=== PATIENT | male | born 1945 | race Caucasian/White ===

== ENCOUNTER 2016-03-25 05:56 | Emergency (ER) | payer MEDICARE, OTHER ==
[~2016-03-25] VITALS: Ht 185.4 cm; Wt 115.9 kg
[~2016-03-25 05:56] MED LIST: ASPI81TA40 PO; FLO1; OMPR20CCR PO; PRE20 PO; [UNRECOGNIZED DRUG - CODE] PO
[2016-03-25 06:00] VITALS: BP 146/100; PULSE 85; RESP 18; O2SAT 94
--- NOTE | 2016-03-25 06:05 | ED.REPORT ---
HPI-Hand Prob/Inj Date of Service Mar 25, 2016 ED Provider: Singh Elizalde MD The patient is a 70 year old male who presents to the ED due to a laceration on the right hand sustained just [employer]. Pt went out to product picker the garbage this morning, it was dark and a can cut his hand. The laceration is 1.5 cm on his right index finger. It has stopped bleeding upon arrival but he has dried blood all over his hand. Pt is calm and oriented upon arrival. He is allergic to Penicillin and SULFA and is up-to-date on his tetanus shot. Nursing Notes Stated Complaint: R HAND INJURY Chief Complaint: Laceration Nursing Notes Reviewed: Yes Allergies: Coded Allergies: Penicillins (Verified Allergy, Mild, 03/25/16) Uncoded Allergies: SULFA (Allergy, Mild, 12/04/08) Scheduled Fludrocortisone-Expunged Drug, Do Not Renew! (Florinef-Expunged Drug, Do Not Renew!) 0.1 Mg Tablet BID Omeprazole-Expunged Drug, Do Not Renew! (Omeprazole-Expunged Drug, Do Not Renew! ) 20 Mg Capsule.dr 20 MG PO BID PredniSONE-Expunged Drug, Do Not Renew! (PredniSONE-Expunged Drug, Do Not Renew! ) 20 Mg Tab 5 MG PO DAILY TAKE WITH FOOD Miscellaneous Medications Aspirin-Expunged Drug, Do Not Renew! (Aspirin-Expunged Drug, Do Not Renew!) 81 Mg Tab.chew 81 MG PO THIORIDAZINE-Expunged Drug, Do Not Renew! (Mellaril-Expunged Drug, Do Not Renew! ) 50 Mg Tab 50 MG PO General Time Seen by Provider: 06:10 Chief Complaint Hand injury right Hx Obtained From: Patient Arrived By: Walk-in Onset Occurred: Just prior to arrival Symptom Duration: Since onset Caused by: Accidental Location: Right Hand: : Finger... Severity: Current: Mild Recent Healthcare: No recent doctor visit, No recent hospitalization Similar Sx Previous: No Past Medical History Past Medical History [place]'s disease lower back arthritis Reports: GERD Past Surgical History hernia repair as a child Social History Alcohol Use: "Social" Other Social History: Lives alone, Local resident Ambulatory Status Independent Review of Systems Musculoskeletal: Reports: Extremity pain (right hand laceration) Complete sys rev & neg: except as marked. Physical Exam Initial Vital Signs Vital Signs (First) Date Time Temp Pulse Resp B/P Pulse Ox O2 Delivery O2 Flow Rate FiO2 03/25/16 06:00 36.3 85 18 146/100 94 Room Air Initial VS: Reviewed General/Constitutional: Well-developed, Well-nourished Head / Eyes: Atraumatic, Normocephalic, PERRL ENT: Mucous membranes moist, Conjunctiva normal, No scleral icterus Neck: Supple, Non-tender, Full range of motion Respiratory: Breath sounds normal, Clear to auscultation, No respiratory distress Cardiovascular: Regular rate & rhythm, Heart sounds normal, Intact distal pulses Abdomen / GI: Soft, Non-tender, No guarding, No rebound, No distention Skin: Warm, Dry, No cyanosis Neurologic: Alert, Oriented, Nonfocal Psychiatric: Mood/affect normal, Behavior normal, Normal thought content Trauma / Burn / Environmental: Positive: Laceration (1.5 cm laceration on right index finer) tendon function normal laceration in palmar fold of PIP joint of index finger of right hand no foreign body identified Procedures Laceration Management Time: 06:32 Procedure Performed by: ED physician Consent / Setup / Site Prep: Informed consent provided, Time-out performed, Hand hygiene observed, Stand sterile technique Location of Wound: right hand Wound Length: 1 cm (1.5 cm) Local Anesthesia: Lidocaine 1% Digit Involved: Index finger right Wound Preparation: Nereida Foreign Body Explore / Removal: Explored for foreign body # Sutures - Skin: 3 Suture Technique: Simple Post-Procedure / Complications: Antibiotic oint applied, Dressing applied, No complications, Condition improved, Tolerated procedure well, Patient stable Re-Eval/Medical Decision Re-Evaluation/Progress : Time of Eval: 06:37 Patient Status: Condition improved, Mild relief Re-Evaluation/Progress Note: Pt rechecked. Laceration management performed. Pt tolerated exam well. F/U and RTER warnings given. All questions addressed. Counseled Regarding: Diagnosis, Lab results, Need for follow-up, When/why to return to ED Discharge & Departure Primary Impression: Laceration of finger of right hand Encounter type: initial encounter Qualified Code: S61.219A - Laceration without foreign body of unspecified finger without damage to nail, initial encounter Disposition: Home Discharge Condition All VS Reviewed: Yes Condition: Stable Patient Instructions: Finger Laceration (ED) Additional Instructions: Thank you for coming to the Emergency Department today. Keep the cut clean and dry. Take Ibuprofen and Tylenol for pain as needed. The wound will ooze a little bit, but this is normal. Return to the Emergency Department if you experience any new or worsening symptoms, any signs of redness or infection in the area. We hope you feel better soon! Sutures need to be removed in 7 days. Referrals: Codey Wright MD (PCP) Scribe Attestation Portion of this note were transcribed by Giovana Bravo. I, Dr. Elizalde, personally performed the history, physical exam, and medical decision-making: I reviewed and confirmed the accuracy for the information in the transcribed note. Signed by: kong Tipton, 03/25/16 0800 copies to: Codey Wright MD, Kirk H MD Mar 25, 2016 06:05 GIOVANA BRAVO Mar 25, 2016 06:14
== END 2016-03-25 07:12 | disposition home or self-care (01) ==
LOC: SED 05:56
DX: S61.210A Laceration without foreign body of right index finger without damage to nail, initial encounter (principal); W26.8XXA Contact with other sharp object(s), not elsewhere classified, initial encounter; Y93.89 Activity, other specified; Y99.8 Other external cause status; Y92.019 Unspecified place in single-family (private) house as the place of occurrence of the external cause; K21.9 Gastro-esophageal reflux disease without esophagitis; Z86.39 Personal history of other endocrine, nutritional and metabolic disease; Z79.82 Long term (current) use of aspirin; Z88.0 Allergy status to penicillin; Z88.2 Allergy status to sulfonamides

== ENCOUNTER 2016-04-01 05:30 | Emergency (ER) | payer MEDICARE, OTHER ==
[~2016-04-01] VITALS: Ht 185.4 cm; Wt 111.4 kg
[2016-04-01 05:33] VITALS: BP 129/84; PULSE 100; RESP 15; O2SAT 95
--- NOTE | 2016-04-01 05:45 | ED.REPORT ---
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 The patient initially cut his hand on a garbage can one week ago. The patient denies wound drainage. Nursing Notes Stated Complaint: STITCHES REMOVAL Chief Complaint: Staple/Suture Removal Nursing Notes Reviewed: Yes Allergies: Coded Allergies: Penicillins (Verified Allergy, Mild, 03/25/16) Uncoded Allergies: SULFA (Allergy, Mild, 12/04/08) Scheduled Fludrocortisone-Expunged Drug, Do Not Renew! (Florinef-Expunged Drug, Do Not Renew!) 0.1 Mg Tablet BID Omeprazole-Expunged Drug, Do Not Renew! (Omeprazole-Expunged Drug, Do Not Renew! ) 20 Mg Capsule.dr 20 MG PO BID PredniSONE-Expunged Drug, Do Not Renew! (PredniSONE-Expunged Drug, Do Not Renew! ) 20 Mg Tab 5 MG PO DAILY TAKE WITH FOOD Miscellaneous Medications Aspirin-Expunged Drug, Do Not Renew! (Aspirin-Expunged Drug, Do Not Renew!) 81 Mg Tab.chew 81 MG PO THIORIDAZINE-Expunged Drug, Do Not Renew! (Mellaril-Expunged Drug, Do Not Renew! ) 50 Mg Tab 50 MG PO General Time Seen by MD: 05:43 Chief Complaint Other (Suture Removal) Hx Obtained From: Patient Arrived By: Walk-in Onset Occurred: Just prior to arrival Symptom Duration: Since onset Severity: Current: No pain currently Severity: Maximum: No pain Associated with: Denies: Discharge, Fever Pertinent Negative: Relieved by nothing Context Related History: Reports GERD Recent Healthcare: Recent doctor visit Past Medical History Past Medical History Cabell's disease lower back arthritis Reports: GERD Past Surgical History hernia repair as a child Social History Alcohol Use: "Social" Other Social History: Lives alone, Local resident Ambulatory Status Independent Review of Systems + Suture removal from right hand - Wound discharge Full Review of Systems Constitutional: Denies: Fever Respiratory: Denies: Non-productive cough, Shortness of breath GI: Denies: Nausea, Vomiting Complete sys rev & neg: except as marked. Physical Exam Vital Signs Vital Signs Date Time Temp Pulse Resp B/P Pulse Ox O2 Delivery O2 Flow Rate FiO2 04/01/16 05:50 36.0 100 15 129/84 95 Room Air 04/01/16 05:33 36.0 100 15 129/84 95 Room Air Initial VS: Reviewed Head / Eyes: Atraumatic, Normocephalic ENT: Conjunctiva normal, No scleral icterus Neck: Supple, Full range of motion Skin: Warm, Dry, No cyanosis Neurologic: Alert, Oriented, Nonfocal Psychiatric: Mood/affect normal, Behavior normal, Normal thought content General/Constitutional: Awake, Alert, No acute distress Wrist / Hand: Neurologic intact, Vascular intact Sutured wound clean and dry, no erythema or discharge Procedures Skin: Wound / Burn Check Skin: Wound/Burn Check: Three sutures removed Location: Right hand Normal Wound / Burn Check: Healing well, No apparent infection, No discharge , No abscess / fluctuance Re-Eval/Medical Decision Med Decision/Clinical Course 62-year-old presents for suture removal after a laceration transversely across his right index finger and middle phalanx. He sustained it originally on a piece of glass in the garbage. No signs of infection. Three sutures in place and they are removed without difficulty. No drainage no bleeding. Place a bacitracin Band-Aid and discharged in stable condition. Source of Hx: Old records Time of Eval: 05:50 Patient Status: Condition improved Re-Evaluation/Progress Note: Sutures removed. Discussed with patient diagnosis and plan for discharge. Follow-up and return to the ER instructions given. Patient agrees with plan for care and all questions were addressed. Counseled Regarding: Diagnosis, Need for follow-up, When/why to return to ED Discharge & Departure Shift Change Sign-Out Response to Therapy: Improved Primary Impression: Visit for suture removal Disposition: Home Discharge Condition All VS Reviewed: Yes Condition: Improved Patient Instructions: Suture Removal (ED) Additional Instructions: Return if any signs of infection Referrals: Codey Wright MD (PCP) Omaribfaby Attestation Portions of this note were transcribed by Norma Harper. I, Dr. Peters, personally performed the history, physical exam, and medical decision-making; I reviewed and confirmed the accuracy of the information in the transcribed note. Signed by: Orestes Menon, 04/01/2016, 06:10 copies to: Codey Wright MD, Christopher W MD Apr 01, 2016 05:45 NORMA HARPER Apr 01, 2016 05:50
[2016-04-01 05:50] VITALS: BP 129/84; PULSE 100; RESP 15; O2SAT 95
== END 2016-04-01 05:51 | disposition home or self-care (01) ==
LOC: SED 05:30
DX: Z48.02 Encounter for removal of sutures (principal)